=== PATIENT | female | born 1960 | race Two or more races ===

== ENCOUNTER 2018-09-30 09:00 | Emergency (ER) | payer MEDICAID, OTHER ==
[~2018-09-30] VITALS: Ht 167.6 cm; Wt 111.0 kg
[2018-09-30] MEDS ORDERED: KETOROLAC 30MG/ML VIAL IV STA (09:33)
[2018-09-30] MEDS ORDERED: ONDANSETRON HCL 4MG/2ML INJ IV STA (09:33)
[2018-09-30 10:07] LABS: BASOPHILS % 0.5 % (0.0-2.0); CHLORIDE 108 mEq/L (98-107); EOSINOPHILS % 1.6 % (0.0-5.0); HEMATOCRIT. 41.3 % (36.0-48.0); HEMOGLOBIN. 13.9 g/dL (12.0-16.0); LYMPHOCYTES % 21.1 % (20.0-50.0); MEAN CORPUSCULAR HEMOGLOBIN 31.4 pg (28.0-32.0); MEAN CORPUSCULAR VOLUME 92.9 fL (81.0-99.0); MEAN PLATELET VOLUME 9.6 fl (7.4-10.4); MONOCYTES % 8.1 % (2.0-8.0); NEUTROPHILS % 68.7 % (40.0-76.0); PLATELET 183 x1000/uL (130-400); RED BLOOD CELL COUNT 4.45 mill/uL (4.2-5.4)
[2018-09-30 10:09] LABS: PROTHROMBIN TIME 10.1 sec (9.6-11.0)
[2018-09-30 10:18] LABS: CLARITY URINE CLEAR (CLEAR); COLOR URINE YELLOW (YELLOW); KETONES URINE NEGATIVE (NEGATIVE); LEUKOCYTE ESTERASE URINE NEGATIVE (NEGATIVE); NITRITE URINE NEGATIVE (NEGATIVE); OCCULT BLOOD URINE NEGATIVE (NEGATIVE); PH URINE 5.5 (4.5-8.0); PROTEIN URINE NEGATIVE (NEGATIVE); SPECIFIC GRAVITY URINE 1.004 (1.005-1.030); UROBILINOGEN URINE 0.2 E.U./dL (0.2-1.0)
[2018-09-30 11:45] VITALS: BP 144/82
== END 2018-09-30 12:01 | disposition home or self-care (01) ==
LOC: ER 09:00
DX: R10.11 Right upper quadrant pain (principal); R00.2 Palpitations
CPT/HCPCS: 36415; 76705; 80053; 81003; 83690; 85025; 85610; 93005; 96374; 96375; 99284; J1885; J2405

== ENCOUNTER 2020-06-30 06:55 | Emergency (ER) | payer OTHER ==
[~2020-06-30] VITALS: Ht 157.5 cm; Wt 109.0 kg
[2020-06-30] MEDS ORDERED: KETOROLAC 60MG/2ML VIAL IM ONE (07:30)
[2020-06-30] MEDS ORDERED: ACETAMINOPHEN WITH CODEINE 300/30MG TABLET PO ONE (07:30)
[2020-06-30] MEDS ORDERED: IBUP-2028 PO (09:22)
[2020-06-30 10:20] VITALS: BP 116/72
== END 2020-06-30 10:33 | disposition home or self-care (01) ==
LOC: ER 06:55
DX: M79.18 Myalgia, other site (principal); Z98.51 Tubal ligation status
CPT/HCPCS: 96372; 99283; J1885; Z7610

== ENCOUNTER 2020-10-12 08:31 | Emergency (ER) | payer OTHER ==
[~2020-10-12] VITALS: Ht 152.4 cm; Wt 107.0 kg
[~2020-10-12 08:31] MED LIST: IBUP-2028 PO
[2020-10-12] MEDS ORDERED: ACETAMINOPHEN 325MG TABLET PO ONE (09:00)
[2020-10-12] MEDS ORDERED: LIDOCAINE 5% PATCH TOP SCH (09:00)
[2020-10-12] MEDS ORDERED: CEPHALEXIN 250MG CAPSULE PO NR (09:45)
[2020-10-12] MEDS ORDERED: CEPH500C2 MT (09:49)
[2020-10-12] MEDS ORDERED: IBUP-2029 MT (09:49)
[2020-10-12] MEDS ORDERED: ACET-2708 MT (09:49)
[2020-10-12] MEDS ORDERED: LIDO700A15 TP (09:49)
[2020-10-12] MEDS ORDERED: BACL-141 MT (09:49)
[2020-10-12 10:19] VITALS: BP 150/78
== END 2020-10-12 10:19 | disposition home or self-care (01) ==
LOC: ER 08:31
DX: S43.401A Unspecified sprain of right shoulder joint, initial encounter (principal); L03.031 Cellulitis of right toe; Z79.899 Other long term (current) drug therapy; Z98.51 Tubal ligation status; Z13.9 Encounter for screening, unspecified; X58.XXXA Exposure to other specified factors, initial encounter; Y93.89 Activity, other specified; Y92.89 Other specified places as the place of occurrence of the external cause; Y99.8 Other external cause status
CPT/HCPCS: 73030; 73620; 99284

== ENCOUNTER 2020-11-29 04:48 | Emergency (ER) | payer OTHER ==
[~2020-11-29] VITALS: Ht 154.9 cm; Wt 100.0 kg
[~2020-11-29 04:48] MED LIST changes: +ACET-2708 MT; +BACL-141 MT; +CEPH500C2 MT; +IBUP-2029 MT; +LIDO700A15 TP
[2020-11-29 05:41] LABS: BASOPHILS % 0.5 % (0.0-2.0); EOSINOPHILS % 1.9 % (0.0-5.0); HEMATOCRIT. 37.9 % (36.0-48.0); LYMPHOCYTES % 28.6 % (20.0-50.0); MEAN CORPUSCULAR HEMOGLOBIN 31.3 pg (28.0-32.0); MEAN CORPUSCULAR VOLUME 91.1 fL (81.0-99.0); MEAN PLATELET VOLUME 9.3 fl (7.4-10.4); PLATELET 181 x1000/uL (130-400); RED BLOOD CELL COUNT 4.16 mill/uL (4.2-5.4); RED CELL DISTRIBUTION WIDTH 12.8 % (11.6-14.6)
[2020-11-29] MEDS ORDERED: MORPHINE SULFATE 4 MG/ML CPJ (NOT FOR IM USE) IV ONE (05:45)
[2020-11-29 05:49] LABS: CHLORIDE 109 mEq/L (98-107)
[2020-11-29 06:05] LABS: CLARITY URINE CLEAR (CLEAR); COLOR URINE YELLOW (YELLOW); KETONES URINE NEGATIVE (NEGATIVE); LEUKOCYTE ESTERASE URINE TRACE (NEGATIVE); NITRITE URINE NEGATIVE (NEGATIVE); OCCULT BLOOD URINE NEGATIVE (NEGATIVE); PH URINE 6.5 (4.5-8.0); PROTEIN URINE NEGATIVE (NEGATIVE); SPECIFIC GRAVITY URINE 1.015 (1.005-1.030)
[2020-11-29 06:10] LABS: PROTHROMBIN TIME 10.3 sec (9.6-11.0)
[2020-11-29 06:12] VITALS: BP 128/89
[2020-11-29] MEDS ORDERED: TOPUD PO (07:10)
== END 2020-11-29 07:24 | disposition home or self-care (01) ==
LOC: ER 04:48
DX: R10.32 Left lower quadrant pain (principal); Z88.0 Allergy status to penicillin
CPT/HCPCS: 36415; 74176; 80053; 81003; 83690; 85025; 85610; 96374; 99284; J2270

== ENCOUNTER 2021-05-27 18:26 | Emergency (ER) | payer MEDICAID, OTHER ==
[~2021-05-27] VITALS: Ht 154.9 cm; Wt 102.0 kg
[~2021-05-27 18:26] MED LIST changes: +TOPUD PO
[2021-05-28 00:17] LABS: BASOPHILS % 0.4 % (0.0-2.0); EOSINOPHILS % 2.2 % (0.0-5.0); HEMATOCRIT. 40.2 % (36.0-48.0); HEMOGLOBIN. 13.7 g/dL (12.0-16.0); MEAN CORPUSCULAR HEMOGLOBIN 31.4 pg (28.0-32.0); MEAN CORPUSCULAR VOLUME 92.1 fL (81.0-99.0); MEAN PLATELET VOLUME 9.6 fl (7.4-10.4); MONOCYTES % 10.2 % (2.0-8.0); NEUTROPHILS % 55.2 % (40.0-76.0); PLATELET 166 x1000/uL (130-400); RED BLOOD CELL COUNT 4.37 mill/uL (4.2-5.4); RED CELL DISTRIBUTION WIDTH 12.8 % (11.6-14.6)
[2021-05-28 00:22] LABS: CHLORIDE 108 mEq/L (98-107)
[2021-05-28] MEDS ORDERED: IBUP-2028 MT (02:29)
[2021-05-28] MEDS ORDERED: KETOROLAC 60MG/2ML VIAL IM NR (02:30)
[2021-05-28 02:46] VITALS: BP 135/75
== END 2021-05-28 02:47 | disposition home or self-care (01) ==
LOC: ER 18:26
DX: M79.662 Pain in left lower leg (principal); M79.661 Pain in right lower leg; Z98.890 Other specified postprocedural states
CPT/HCPCS: 36415; 80053; 85025; 93970; 99284